=== PATIENT | male | born 1965 | race Caucasian/White ===

== ENCOUNTER → 2019-08-14 | Day surgery (SDC) | payer BC ==
[~2019-08-14] MED LIST: Lactated Ringers 1,000 ML IV SCH; Propofol 200 MG/20 ML SDV IV ONE
[2019-08-14 11:13] VITALS: BP 114/71; PULSE 63
--- NOTE | 2019-08-14 12:00 | OR ---
DATE OF OPERATION: 08/14/2019 PREOPERATIVE DIAGNOSIS: FAMILY HISTORY OF COLON CARCINOMA. POSTOPERATIVE DIAGNOSIS: FAMILY HISTORY OF COLON CARCINOMA. SURGEON: Alejandro Ford MD PROCEDURE: FULL-LENGTH COLONOSCOPY. ANESTHESIA: MAC. COMPLICATIONS: None. SPECIMEN: None. FINDINGS: 1. Normal full-length colonoscopy. 2. Extremely long redundant colon. RECOMMENDATIONS: Followup colonoscopy every 5 years. INDICATIONS: The patient has a family history of colon cancer in his mother. He is due for a 5-year surveillance scope. DESCRIPTION OF PROCEDURE: The patient was prepped and draped, placed in the left lateral decubitus position. A lubricated Olympus colonoscope was inserted and ultimately advanced right up to the cecal pouch. The patient was extremely tortuous and had an extremely long colon, but we were able to get past the hepatic flexure, slide down right up against the ileocecal valve region. There was some stool present in the pouch itself. We were able to irrigate and no obvious abnormalities were seen. Upon withdrawal, throughout the length of the colon, I could find no signs of any polyps, mass, ulceration, or bleeding sites. No vascular abnormalities or signs of colitis. There were no significant diverticula. The rectal vault appeared benign. Retroflexion showed no perianal lesions. Air was suctioned, scope removed without complication. BRINDA/EDWARDO /[id number]
== END ==
LOC: CC.SDS 08:25
PROVIDERS: ATTEND Family Medicine
DX: Z12.11 Encounter for screening for malignant neoplasm of colon (principal); E78.5 Hyperlipidemia, unspecified; E11.65 Type 2 diabetes mellitus with hyperglycemia; N40.0 Benign prostatic hyperplasia without lower urinary tract symptoms; E02 Subclinical iodine-deficiency hypothyroidism; Z80.0 Family history of malignant neoplasm of digestive organs; Z79.890 Hormone replacement therapy; Z79.84 Long term (current) use of oral hypoglycemic drugs; Z79.899 Other long term (current) drug therapy
CPT/HCPCS: G0121; J2704; J7120

== ENCOUNTER 2024-08-12 06:49 | Day surgery (SDC) | payer BC ==
[2024-08-12] MEDS: Lactated Ringers 1,000 ML IV SCH (07:24)
[2024-08-12] MEDS ORDERED: Flumazenil 0.1 MG/ML 5 ML MDV ONE (07:25)
[2024-08-12] MEDS ORDERED: fentaNYL 50 MCG/ML SDV ONE (07:25)
[2024-08-12] MEDS ORDERED: Ketamine 200 MG/20 ML MDV ONE (07:25)
[2024-08-12] MEDS ORDERED: Midazolam 1 MG/ML 2 ML SDV ONE (07:25)
[2024-08-12] MEDS ORDERED: Propofol 200 MG/20 ML SDV ONE ×2 (07:25)
[2024-08-12 09:02] VITALS: BP 99/70; PULSE 55
== END 2024-08-12 09:05 | disposition home or self-care (01) ==
LOC: CC.SDS 06:49
PROVIDERS: ATTEND Family Medicine
DX: Z12.11 Encounter for screening for malignant neoplasm of colon (principal); D12.4 Benign neoplasm of descending colon; E78.5 Hyperlipidemia, unspecified; E03.9 Hypothyroidism, unspecified; E11.9 Type 2 diabetes mellitus without complications; Z80.0 Family history of malignant neoplasm of digestive organs; Z79.84 Long term (current) use of oral hypoglycemic drugs; Z79.899 Other long term (current) drug therapy; Z79.890 Hormone replacement therapy
CPT/HCPCS: 00811; J2250; J2704; J3010; J3490; J7120